=== PATIENT | female | born 1975 | race Caucasian/White ===

== ENCOUNTER → 2017-04-22 15:59 | Outpatient (CLI) | payer OTHER, SELFPAY ==
--- NOTE | 2017-04-22 16:08 | HPBI_ITS ---
MAMMOGRAPHY - BILATERAL SCREENING 3-D LUDMILA SYNTHESIS REASON FOR EXAM: Female, 41 years old. Bilateral Screening 3-D tomosynthesis PERTINENT HISTORY: Asymptomatic. Ultrasound guided biopsy 03/2016, benign fibroadenoma. Family breast carcinoma, maternal grandmother age 34. TECHNIQUE: 2-D mammograms and 3-D Ludmila synthesis of the breasts were performed. CAD was performed. COMPARISON: 03/24/2016 through 02/09/2012. FINDINGS: The breast composition is composed of scattered fibroglandular density. Scattered benign calcifications are seen. No dense spiculated masses, abnormal microcalcification cluster, dominant mass, architectural distortion or adenopathy is identified. There is no skin thickening or nipple retraction. Right breast lower inner quadrant tiny biopsy surgical clip noted. There has been no significant change since the prior study. HPBI/SCREENING MAMM (CAD), BILAT IMPRESSION: No mammographic signs of malignancy. Routine yearly mammograms recommended. ASSESSMENT CATEGORY: BIRADS Category 2: Benign. A letter regarding these results will be sent to the patient by the facility within 30 days. FOLLOW UP RECOMMENDATION: Yearly follow up mammogram recommended. (A) Approximately 10% of breast cancers are not detected by mammography. A normal mammogram should not delay biopsy of a clinically suspicious abnormality. Electronically Signed: Bird Bazan, at 18:04 EDT Tel , Service support ,
== END ==
PROVIDERS: Family Provider Family Medicine; PCP Family Medicine; Visit Provider Family Medicine
DX: Z12.31 Encounter for screening mammogram for malignant neoplasm of breast (principal)
CPT/HCPCS: 77063; 77067

== ENCOUNTER → 2018-04-25 10:19 | Outpatient (CLI) | payer OTHER, SELFPAY ==
--- NOTE | 2018-04-25 10:22 | BI_ITS ---
MAMMOGRAPHY - BILATERAL SCREENING 3-D LUDMILA SYNTHESIS REASON FOR EXAM: Female, 42 years old. Bilateral Screening 3-D tomosynthesis PERTINENT HISTORY: History of benign biopsy for fibroadenoma in 2017. Took infertility drugs for 7 years. TECHNIQUE: 2-D mammograms and 3-D Ludmila synthesis of the breast (s) were performed. CAD was performed. COMPARISON: April 22, 2017 FINDINGS: The breast composition is composed of scattered fibroglandular density. There is a stable biopsy clip in the right breast. Scattered benign calcifications are stable. There are normal-appearing lymph nodes unchanged. No dense spiculated masses or suspicious microcalcifications are identified. No architectural distortion is identified. There is no skin thickening or retraction. There has been no significant change since the prior study. BI/SCREENING MAMM (CAD), BILAT IMPRESSION: No mammographic signs of malignancy. Routine yearly mammograms recommended. ASSESSMENT CATEGORY: BIRADS Category 2: Benign. A letter regarding these results will be sent to the patient by the facility within 30 days. FOLLOW UP RECOMMENDATION: Yearly follow up mammogram recommended. (A) Approximately 10% of breast cancers are not detected by mammography. A normal mammogram should not delay biopsy of a clinically suspicious abnormality. Electronically Signed: Segun Dale MD at 17:50 EDT , Service support ,
== END ==
PROVIDERS: Family Provider Family Medicine; PCP Family Medicine; Referring Provider Family Medicine; Visit Provider Family Medicine
DX: Z12.31 Encounter for screening mammogram for malignant neoplasm of breast (principal)
CPT/HCPCS: 77063; 77067

== ENCOUNTER → 2018-05-17 14:21 | Outpatient (CLI) | payer OTHER, SELFPAY ==
--- NOTE | 2018-05-17 | ECC_PTH ---
PATIENT: CHAPARRITA PEOPLES LOC: [facility] U#:[id number] AGE/SX: 49/F ROOM: RE05/17/[address]: Dr. Sophia Tirado MD : 1975 BED: DIS: SPEC #: [id number] RECD: 05/17/18 13:30 STATUS: [place] MA[facility] #: [id number] TED: 05/17/18 00:[address]: Sophia Tirado DEPT: SURGICAL PATHOLOGY RECD BY: Franklyn Larkin ENTERED: 05/17/18 14:38 SP TYPE: SOHAM STEPHENS DR: Lia Thomas PA-C Tissues: Endocervical Procedures: Surgery Specimen Level IV HEADER OPERATION: Polypectomy PRE-OP DIAGNOSIS: N84.1, N92.4 TISSUE SUBMITTED: Endocervical MICROSCOPIC DIAGNOSIS Endocervical polyps, biopsy: Polypoid fragments of endocervical tissue, inflamed. AM:krishan 05/18/18 MICROSCOPIC DESCRIPTION Slides are reviewed. GROSS DESCRIPTION Received in fixative is one container labeled with the patient's name and designated polyps. The specimen consists of multiple irregular fragments of pink-red soft tissue that in aggregate measure 2 x 2 x 0.3 cm. The entire specimen is submitted in one cassette. / SJ:rg 05/17/18 TC:1 CPT: 66356
== END ==
PROVIDERS: Family Provider Family Medicine; PCP Family Medicine; Referring Provider Obstetrics & Gynecology; Visit Provider Obstetrics & Gynecology
DX: N84.1 Polyp of cervix uteri (principal); N92.4 Excessive bleeding in the premenopausal period
CPT/HCPCS: 88305

== ENCOUNTER → 2019-05-29 10:39 | Outpatient (CLI) | payer OTHER, SELFPAY ==
--- NOTE | 2019-05-29 10:42 | BI_ITS ---
MAMMOGRAPHY - BILATERAL SCREENING REASON FOR EXAM: Female, 43 years old. Routine annual screening examination. PERTINENT HISTORY: Grandmother with breast cancer. History of prior ultrasound-guided right breast biopsy which demonstrated to be a fibroadenoma. TECHNIQUE: Digital bilateral breast ludmila (3D mammographic acquisition) in the CC and MLO projections. 2-D mediolateral oblique (MLO) and craniocaudad (CC) views of both breasts were obtained. CAD: Full Field Digital Mammography with Computer Added Detection was performed. COMPARISON: Comparison is made with prior study dated April 25, 2018 and April 22, 2017. FINDINGS: Breast Composition: The breasts are heterogeneously dense, which may obscure small masses. A tissue clip marker is seen within a nodular density in the inferior central portion of the right breast. The nodular density is unchanged. Stable 1.1 cm well-defined nodule in the central medial portion of the left breast. Correlation with ultrasound is recommended. No clustered microcalcification is seen. No other significant abnormalities are identified. There has been no significant change since the prior study. BI/SCREEN MAMM (CAD) W/LUDMILA BILAT IMPRESSION: Stable bilateral screening mammogram. Ultrasound of the 1.1 cm nodule in the central medial portion of the left breast is recommended for further evaluation. ASSESSMENT CATEGORY: BIRADS Category 0: Incomplete. Need additional imaging evaluation. A letter regarding these results will be sent to the patient by the facility within 30 days. Approximately 10% of breast cancers are not detected by mammography. A normal mammogram should not delay biopsy of a clinically suspicious abnormality. [id number] Electronically Signed: Steve Harris, at 12:19 EDT , Service support ,
== END ==
PROVIDERS: PCP Family Medicine; Referring Provider Family Medicine; Visit Provider Family Medicine
DX: Z12.31 Encounter for screening mammogram for malignant neoplasm of breast (principal); N63.20 Unspecified lump in the left breast, unspecified quadrant; D24.1 Benign neoplasm of right breast
CPT/HCPCS: 77063; 77067

== ENCOUNTER → 2019-05-30 10:01 | Outpatient (CLI) | payer OTHER, SELFPAY ==
--- NOTE | 2019-05-30 10:02 | US_ITS ---
STUDY: ULTRASOUND BREAST - LEFT REASON FOR EXAM: Female, 43 years old. Abnormal screening mammogram. TECHNIQUE: Axial and longitudinal images of the LEFT breast were performed with a high resolution ultrasound transducer. # OF IMAGES: 55 COMPARISON: Comparison is made with prior mammogram dated May 29, 2019. FINDINGS: LEFT Breast: There is a 6 mm x 9 mm x 8 mm slightly irregular hypoechoic nodule with posterior acoustical shadowing at the 10:00 position of the breast at 7 cm from the nipple. A biopsy is recommended for further evaluation. There is also evidence of a 7 mm x 6 mm x 3 mm well-defined hypoechoic nodule at the 12:00 position of the breast at 6 cm from the nipple. US/Breast Limited Unilateral IMPRESSION: 6 mm x 9 mm x 8 mm slightly irregular hypoechoic nodule with posterior acoustical shadowing at the 10:00 position breast at 7 cm from nipple. A biopsy is recommended. ASSESSMENT CATEGORY: BIRADS Category 4: Suspicious - Biopsy Should Be Considered. A letter regarding these results will be sent to the patient by the facility within 30 days. Electronically Signed: Steve Harris, at 11:48 EDT , Service support ,
== END ==
PROVIDERS: PCP Family Medicine; Visit Provider Family Medicine
DX: N63.22 Unspecified lump in the left breast, upper inner quadrant (principal)
CPT/HCPCS: 76642

== ENCOUNTER → 2019-05-31 | Outpatient (CLI) | payer OTHER, SELFPAY ==
--- NOTE | 2019-05-31 | BRBX_PTH ---
PATIENT: CHAPARRITA PEOPLES [facility] U[facility][id number] AGE/SX: 43/F ROOM: RE05/31/[address]: Dr. Michele Moya MD : 1975 BED: DIS: 05/31/2019 SPEC #: [id number] RECD: 05/31/19 14:14 STATUS: [place] RE[place] #: [id number] TED: 05/31/19 00:[address]: Michele Moya DEPT: SURGICAL PATHOLOGY RECD BY: Shade Rodriguez ENTERED: 06/01/19 11:03 SP TYPE: BREAST BX OTHR DR: Lia Thomas PA-C Tissues: Left breast, NOS Procedures: Surgery Specimen Level IV HEADER OPERATION: Ultrasound-guided left breast biopsy PRE-OP DIAGNOSIS: Abnormal mammogram R92.8 TISSUE SUBMITTED: Left breast biopsy ISCHEMIC TIME: 30 seconds FIXATION TIME: 78 hours MICROSCOPIC DIAGNOSIS Left breast, ultrasound-guided needle core biopsy: Consistent with fibroadenoma. AM:krishan 06/04/19 COMMENT Reference is made to the patient's previous right breast ultrasound-guided needle core biopsy from 2017 ([id number]) in which changes of hyalinized fibroadenoma were identified. MICROSCOPIC DESCRIPTION Slides are reviewed. GROSS DESCRIPTION Received in fixative is one container labeled with the patient name and designated left breast biopsy. The specimen consists of two elongated fragments of murphy-yellow fibroadipose tissue that in aggregate measure 1 x 0.2 x 0.1 cm. The entire specimen is submitted in one cassette. / SJ:krishan 06/01/19 TC:5 CPT: [id number]
[2019-05-31 13:28] VITALS: BMI 24.9
== END | disposition home or self-care (01) ==
PROVIDERS: PCP Family Medicine; Referring Provider Surgery; Visit Provider Surgery
DX: R92.8 Other abnormal and inconclusive findings on diagnostic imaging of breast (principal)
CPT/HCPCS: 88305

== ENCOUNTER → 2019-11-06 | Outpatient (CLI) | payer OTHER, SELFPAY ==
[2019-11-06 15:03] VITALS: BMI 24.9
[2019-11-09 21:15] LABS: HPV APTIMA, High Risk Negative (Negative)
== END | disposition home or self-care (01) ==
LOC: LABSPEC 16:53
PROVIDERS: PCP Family Medicine; Referring Provider Nurse Practitioner Women's Health; Visit Provider Nurse Practitioner Women's Health
DX: Z12.4 Encounter for screening for malignant neoplasm of cervix (principal)
CPT/HCPCS: 87624; 88175; G0145

== ENCOUNTER → 2020-07-24 18:24 | Outpatient (CLI) | payer OTHER, SELFPAY ==
[2020-07-24 08:35] VITALS: BMI 24.9
--- NOTE | 2020-07-24 18:27 | US_ITS ---
ACR Level 3 findings have been noted. An addendum which confirms receipt of the report will follow. HISTORY: LLQ PAIN EXAMINATION: US Pelvis Non-OB Complete TECHNIQUE: Transvaginal pelvic ultrasound was performed. Grayscale, spectral waveform, and color flow Doppler evaluation of the adnexa. COMPARISON: None FINDINGS: UTERUS: anteverted. The uterus measures 7.4 x 6.1 x 3.5 cm. Focal hypoechoic myometrial lesion consistent with fibroid measures up to 1.6 cm. The endometrial stripe measures 10 mm in AP diameter which is within normal limits. Cervical nabothian cyst. RIGHT OVARY: 3.9 x 3.0 x 2.1 cm. Heterogenous lesion with thick and irregular internal septations measures up to 2.0 cm. There is normal arterial inflow and venous outflow present in the right ovary. LEFT OVARY: 2.5 x 2.0 x 1.8 cm. Non-enlarged, normal echogenicity. There is normal arterial inflow and venous outflow present in the left ovary. FREE FLUID: Trace. US/Pelvic (Non ) IMPRESSION: Fibroid uterus. 2.0 cm complex lesion right ovary. Recommend gynecological consultation for possible excision. at 1945 Reported and signed by: Mayank Figueroa MD Electronically Signed: Mayank Figueroa MD at 19:44 EDT Tel , Service support ,
--- NOTE | 2020-07-24 18:38 | US_ITS ---
ACR Level 3 findings have been noted. An addendum which confirms receipt of the report will follow. HISTORY: LLQ PAIN EXAMINATION: US Pelvis Non-OB Complete TECHNIQUE: Transvaginal pelvic ultrasound was performed. Grayscale, spectral waveform, and color flow Doppler evaluation of the adnexa. COMPARISON: None FINDINGS: UTERUS: anteverted. The uterus measures 7.4 x 6.1 x 3.5 cm. Focal hypoechoic myometrial lesion consistent with fibroid measures up to 1.6 cm. The endometrial stripe measures 10 mm in AP diameter which is within normal limits. Cervical nabothian cyst. RIGHT OVARY: 3.9 x 3.0 x 2.1 cm. Heterogenous lesion with thick and irregular internal septations measures up to 2.0 cm. There is normal arterial inflow and venous outflow present in the right ovary. LEFT OVARY: 2.5 x 2.0 x 1.8 cm. Non-enlarged, normal echogenicity. There is normal arterial inflow and venous outflow present in the left ovary. FREE FLUID: Trace. US/Transvaginal Non- IMPRESSION: Fibroid uterus. 2.0 cm complex lesion right ovary. Recommend gynecological consultation for possible excision. at 1945 Reported and signed by: Mayank Figueroa MD Electronically Signed: Mayank Figueroa MD at 19:44 EDT Tel , Service support ,
== END ==
PROVIDERS: PCP Family Medicine; Visit Provider Nurse Practitioner Women's Health
DX: R10.32 Left lower quadrant pain (principal)
CPT/HCPCS: 76830; 76856; 93976

== ENCOUNTER → 2020-09-04 11:27 | Outpatient (CLI) | payer OTHER, SELFPAY ==
[2020-07-24 08:35] VITALS: BMI 24.9
--- NOTE | 2020-09-04 11:29 | US_ITS ---
STUDY: ULTRASOUND OF THE FEMALE PELVIS - COMPLETE REASON FOR EXAM: Female, 45 years old. pelvic pain LMP: 08/29/2020 TECHNIQUE: Transabdominal and Transvaginal TECHNICAL QUALITY: Adequate. COMPARISON: 07/24/2020 FINDINGS: The uterus is anteverted and is in a midline position. The uterus measures 7.4 x 3.1 x 5.2 cm. Normal uterine cervix. The endometrium measures 6 mm in thickness, and is hyperechoic. There is no demonstrated endometrial mass. 1.5 cm oval hypoechoic mass within the right side of the body the uterus anteriorly consistent with an intramural fibroid. I.U.D. - The patient does not have an I.U.D. The right ovary is visualized. The right ovary measures 2.4 x 2.6 x 2.3 cm. There is no right ovarian cyst or ovarian mass. There is no visualized right adnexal mass or complex lesion. There is normal arterial and normal venous vascularity. The left ovary is visualized. The left ovary measures 2.5 x 2.2 x 2.3 cm. There is no left ovarian cyst or ovarian mass. There is no visualized left adnexal mass or complex lesion. There is normal arterial and normal venous vascularity. There is no fluid in the cul-de-sac. The pre void volume of the bladder was ml. The post void volume of the bladder was ml. Polycystic ovary disease: No. US/Pelvic (Non ) IMPRESSION: 1.5 cm fibroid in the right side of the uterus. Electronically Signed: Urbano Castanon MD at 8:33 EDT Tel , Service support ,
--- NOTE | 2020-09-04 11:29 | US_ITS ---
STUDY: ULTRASOUND OF THE FEMALE PELVIS - COMPLETE REASON FOR EXAM: Female, 45 years old. pelvic pain LMP: 08/29/2020 TECHNIQUE: Transabdominal and Transvaginal TECHNICAL QUALITY: Adequate. COMPARISON: 07/24/2020 FINDINGS: The uterus is anteverted and is in a midline position. The uterus measures 7.4 x 3.1 x 5.2 cm. Normal uterine cervix. The endometrium measures 6 mm in thickness, and is hyperechoic. There is no demonstrated endometrial mass. 1.5 cm oval hypoechoic mass within the right side of the body the uterus anteriorly consistent with an intramural fibroid. I.U.D. - The patient does not have an I.U.D. The right ovary is visualized. The right ovary measures 2.4 x 2.6 x 2.3 cm. There is no right ovarian cyst or ovarian mass. There is no visualized right adnexal mass or complex lesion. There is normal arterial and normal venous vascularity. The left ovary is visualized. The left ovary measures 2.5 x 2.2 x 2.3 cm. There is no left ovarian cyst or ovarian mass. There is no visualized left adnexal mass or complex lesion. There is normal arterial and normal venous vascularity. There is no fluid in the cul-de-sac. The pre void volume of the bladder was ml. The post void volume of the bladder was ml. Polycystic ovary disease: No. US/Transvaginal Non- IMPRESSION: 1.5 cm fibroid in the right side of the uterus. Electronically Signed: Urbano Castanon MD at 8:33 EDT Tel , Service support ,
== END ==
PROVIDERS: PCP Family Medicine; Referring Provider Obstetrics & Gynecology; Visit Provider Obstetrics & Gynecology
DX: D25.9 Leiomyoma of uterus, unspecified (principal)
CPT/HCPCS: 76830; 76856; 93976

== ENCOUNTER → 2020-12-11 09:41 | Outpatient (CLI) | payer OTHER, SELFPAY | PROVIDERS: PCP Physician Assistant; Referring Provider Obstetrics & Gynecology; Visit Provider Obstetrics & Gynecology | DX: R69 Illness, unspecified (principal) ==

== ENCOUNTER → 2020-12-19 | Outpatient (CLI) | payer OTHER, SELFPAY ==
--- NOTE | 2020-12-18 | FLU_PTH ---
PATIENT: CHAPARRITA PEOPLES LOC: [facility] U#:[id number] AGE/SX: 45/F ROOM: RE12/19/[address]: Dr. Michele Moya MD : 1975 BED: DIS: 12/19/2020 SPEC #: [id number] RECD: 12/19/20 12:06 STATUS: [place] [facility] #: [id number] TED: 12/18/20 00:[address]: Michele Moya DEPT: CYTOLOGY RECD BY: Nicole Menjivar ENTERED: 12/19/20 13:34 SP TYPE: Fluid OTHR DR: PATI Quintero Tissues: A - Thyroid gland, NOS B - Thyroid gland, NOS Procedures: Special Stain Group II Surgery Specimen Level IV Cytospin Fluid Cytology Other HEADER OPERATION: Ultrasound-guided fine needle aspiration left thyroid nodule PRE-OP DIAGNOSIS: Left thyroid nodule TISSUE SUBMITTED: A ? Left thyroid nodule fluid, B ? Left thyroid nodule x12 slides DIAGNOSIS CYTOLOGY A. Fine needle aspiration, left thyroid nodule (cytospin and cell block): Adequate for evaluation. Negative, consistent with benign follicular nodule. B. Fine needle aspiration, left thyroid nodule (smears): Adequate for evaluation. Suspicious for follicular neoplasm. AM:krishan 12/22/2020 COMMENT Case has been reviewed in consultation with Dr. Wu who concurs with the above diagnosis. IDC:SJ CYTOLOGY STUDY Slides are reviewed. CYTOLOGY GROSS A - Received is 15 ml of brown cloudy fluid labeled with the patient's name and and designated per the requisition as left thyroid nodule. Submitted for cytology preparation including cell block. B - Received are 12 smears labeled with the patient's name and designated per the requisition as left thyroid nodule. Submitted for staining. / krishan 12/19/2020 TC:? CPT: 41386, 24142, 71600
== END | disposition home or self-care (01) ==
LOC: LABSPEC 12:30
PROVIDERS: PCP Physician Assistant; Visit Provider Surgery
DX: E04.1 Nontoxic single thyroid nodule (principal)
CPT/HCPCS: 88108; 88161; 88305; 88313

== ENCOUNTER → 2021-01-22 09:36 | Outpatient (CLI) | payer OTHER, SELFPAY ==
--- NOTE | 2021-01-22 09:38 | US_ITS ---
STUDY: ULTRASOUND BREAST - LEFT REASON FOR EXAM: Female, 45 years old. Left breast lump. Recent bilateral breast reduction surgery. TECHNIQUE: Axial and longitudinal images of the LEFT breast were performed with a high resolution ultrasound transducer. # OF IMAGES: 26 COMPARISON: Comparison is made with prior mammogram done earlier today. FINDINGS: LEFT Breast: The area of the palpable lump was examined by ultrasound. There is dense fibroglandular tissue. No sonographic abnormality is seen. US/Breast Limited Unilateral IMPRESSION: No sonographic abnormality is seen. ASSESSMENT CATEGORY: BIRADS Category 1: Negative. A letter regarding these results will be sent to the patient by the facility within 30 days. Electronically Signed: Steve Harris MD at 11:03 EST , Service support ,
--- NOTE | 2021-01-22 09:38 | BI_ITS ---
MAMMOGRAPHY - BILATERAL DIAGNOSTIC REASON FOR EXAM: Female, 45 years old. Left breast lump following bilateral breast reduction surgery. PERTINENT HISTORY: Non-contributory. TECHNIQUE: Digital bilateral breast aldo (3D mammographic acquisition) in the CC and MLO projections. 2-D mediolateral oblique (MLO) and craniocaudad (CC) views of both breasts were obtained. CAD: Full Field Digital Mammography with Computer Added Detection was performed. COMPARISON: Comparison is made with prior study dated 05/29/2019 and 04/25/2018. FINDINGS: Breast Composition: The breasts are heterogeneously dense, which may obscure small masses. There are no dominant masses or suspicious calcifications. Since prior study, the patient is status post bilateral breast reduction. Once again, a tissue clip marker is seen within the 1.1 cm well-defined nodule in the central deep aspect of the right breast. This was demonstrated to be a fibroadenoma. The previously seen 1 cm nodule in the central portion of the left breast has been resected. No other significant abnormalities are identified. IMP RESSION: Status post bilateral breast reduction surgery. Stable nodular density in the deep slightly inferior central portion of the right breast. With the patient''s history of a left breast lump, correlation with ultrasound is recommended. ASSESSMENT CATEGORY: BIRADS Category 0: Incomplete. Need additional imaging evaluation. A letter regarding these results will be sent to the patient by the facility within 30 days. Approximately 10% of breast cancers are not detected by mammography. A normal mammogram should not delay biopsy of a clinically suspicious abnormality. Electronically Signed: Steve Harris MD at 11:19 EST , Service support , BI/DIAG MAMM W/NETTE ADKINS
== END ==
PROVIDERS: PCP Physician Assistant; Referring Provider Obstetrics & Gynecology; Visit Provider Obstetrics & Gynecology
DX: N63.20 Unspecified lump in the left breast, unspecified quadrant (principal)
CPT/HCPCS: 76642; 77062; 77066; G0279

== ENCOUNTER → 2021-11-12 | Outpatient (CLI) | payer OTHER, SELFPAY ==
[2021-11-12 14:09] LABS: Cholesterol 176 mg/dL (200); High Density Lipoprotein 56 mg/dL; Triglycerides 144 mg/dL; Very Low Density Lipoprotein 29 mg/dL (5-40)
== END | disposition home or self-care (01) ==
LOC: PAVLAB 12:53
PROVIDERS: PCP Physician Assistant; Referring Provider Obstetrics & Gynecology; Visit Provider Obstetrics & Gynecology
DX: Z13.220 Encounter for screening for lipoid disorders (principal)
CPT/HCPCS: 36415; 80061

== ENCOUNTER → 2022-01-25 | Outpatient (CLI) | payer OTHER, SELFPAY ==
--- NOTE | 2022-01-25 12:00 | BI_ITS ---
MAMMOGRAPHY - BILATERAL SCREENING REASON FOR EXAM: Female, 46 years old. Routine annual screening examination. PERTINENT HISTORY: Grandmother with breast cancer. Prior bilateral breast reduction surgery. TECHNIQUE: Digital bilateral breast ludmila (3D mammographic acquisition) in the CC and MLO projections. 2-D mediolateral oblique (MLO) and craniocaudad (CC) views of both breasts were obtained. CAD: Full Field Digital Mammography with Computer Added Detection was performed. COMPARISON: Comparison is made with prior examination dated 01/22/2021 and 05/29/2019. FINDINGS: Breast Composition: The breasts are heterogeneously dense, which may obscure small masses. There are no dominant masses or suspicious calcifications. Additional marker is seen within a 1.1 cm well-defined nodule in the central deep aspect of the right breast. This was determined to be a fibroadenoma. No other significant abnormalities are identified. There has been no significant change since the prior study. BI/SCRN MAMM (CAD)W/LUDMILA BILAT IMPRESSION: Stable bilateral screening mammogram. Yearly follow-up mammogram recommended. (A) ASSESSMENT CATEGORY: BIRADS Category 2: Benign. A letter regarding these results will be sent to the patient by the facility within 30 days. Approximately 10% of breast cancers are not detected by mammography. A normal mammogram should not delay biopsy of a clinically suspicious abnormality. [id number] Electronically Signed: Steve Harris MD at 15:42 EST ,
== END | disposition home or self-care (01) ==
LOC: OPBI 11:59
PROVIDERS: PCP Physician Assistant; Referring Provider Obstetrics & Gynecology; Visit Provider Obstetrics & Gynecology
DX: Z12.31 Encounter for screening mammogram for malignant neoplasm of breast (principal); Z80.3 Family history of malignant neoplasm of breast; D24.9 Benign neoplasm of unspecified breast
CPT/HCPCS: 77063; 77067

== ENCOUNTER → 2023-01-26 | Outpatient (CLI) | payer OTHER, SELFPAY ==
--- NOTE | 2023-01-26 10:58 | BI_ITS ---
MAMMOGRAPHY - BILATERAL SCREENING REASON FOR EXAM: Female, 47 years old. Routine annual screening examination. PERTINENT HISTORY: Grandmother with breast cancer. History of prior bilateral breast reduction surgery and right ultrasound-guided breast biopsy. TECHNIQUE: Digital bilateral breast ludmila (3D mammographic acquisition) in the CC and MLO projections. 2-D mediolateral oblique (MLO) and craniocaudad (CC) views of both breasts were obtained. CAD: Full Field Digital Mammography with Computer Added Detection was performed. COMPARISON: Comparison is made with prior study January 25, 2022 and January 22, 2021. FINDINGS: Breast Composition: The breasts are heterogeneously dense, which may obscure small masses. There is 1.6 cm nodule in the inferior slightly lateral aspect of the right breast. A tissue clip marker is seen within it. Stable bilateral benign-appearing axillary lymph nodes. No other significant abnormalities are identified. There has been no significant change since the prior study. BI/SCRN MAMM (CAD)W/LUDMILA BILAT IMPRESSION: Stable bilateral screening mammogram. Yearly follow-up mammogram recommended. (A) ASSESSMENT CATEGORY: BIRADS Category 2: Benign. A letter regarding these results will be sent to the patient by the facility within 30 days. Approximately 10% of breast cancers are not detected by mammography. A normal mammogram should not delay biopsy of a clinically suspicious abnormality. [id number] Electronically Signed: Steve Harris MD at 14:00 EST ,
== END | disposition home or self-care (01) ==
LOC: OPBI 10:57
PROVIDERS: PCP Physician Assistant; Referring Provider Obstetrics & Gynecology; Visit Provider Obstetrics & Gynecology
DX: Z12.31 Encounter for screening mammogram for malignant neoplasm of breast (principal)
CPT/HCPCS: 77063; 77067

== ENCOUNTER → 2024-01-30 | Outpatient (CLI) | payer OTHER, SELFPAY ==
--- NOTE | 2024-01-30 10:54 | BI_ITS ---
MAMMOGRAPHY - BILATERAL SCREENING 3-D TOMOSYNTHESIS REASON FOR EXAM: Female, 48 years old. screen PERTINENT HISTORY: No significant family history. TECHNIQUE: 2-D mammograms and 3-D Tomosynthesis of the breast (s) were performed. CAD was performed. COMPARISON: 01/26/2023 FINDINGS: The breast composition is heterogeneously dense that can obscure small breast masses. Scattered benign calcifications are seen. No dense spiculated masses or suspicious microcalcifications are identified. No architectural distortion is identified. There is no skin thickening or retraction. There has been no significant change since the prior study. No change in the 2 cm oval circumscribed equal density mass in the lower outer quadrant of the right breast which has been biopsied with a biopsy clip. BI/SCRN MAMM (CAD)W/LUDMILA BILAT IMPRESSION: No mammographic signs of malignancy. Routine yearly mammograms recommended. ASSESSMENT CATEGORY: BIRADS Category 2: Benign. A letter regarding these results will be sent to the patient by the facility within 30 days. FOLLOW UP RECOMMENDATION: Yearly follow up mammogram recommended. (A) Approximately 10% of breast cancers are not detected by mammography. A normal mammogram should not delay biopsy of a clinically suspicious abnormality. Electronically Signed: Urbano Castanon MD at 17:51 EST ,
== END | disposition home or self-care (01) ==
PROVIDERS: PCP Physician Assistant; Referring Provider Nurse Practitioner Women's Health; Visit Provider Nurse Practitioner Women's Health
DX: Z12.31 Encounter for screening mammogram for malignant neoplasm of breast (principal)
CPT/HCPCS: 77063; 77067

== ENCOUNTER → 2024-09-24 | Outpatient (CLI) | payer OTHER, SELFPAY ==
[2024-09-28 12:08] LABS: HPV APTIMA, High Risk Negative (Negative)
== END | disposition home or self-care (01) ==
LOC: LABSPEC 13:15
PROVIDERS: PCP Physician Assistant; Visit Provider Nurse Practitioner Family
DX: Z12.4 Encounter for screening for malignant neoplasm of cervix (principal)
CPT/HCPCS: 87624; 88175; G0145

== ENCOUNTER → 2025-02-04 | Outpatient (CLI) | payer OTHER, SELFPAY ==
--- NOTE | 2025-02-04 11:00 | BI_ITS ---
EXAM: SCRN MAMM (CAD)W/LUDMILA BILAT DATE: 02/04/2025 CLINICAL HISTORY: F, Age 49 y/o , SCREENING TECHNIQUE: Procedure Code: [id number] Modality: MG Procedure: SCRN MAMM (CAD)W/LUDMILA BILAT COMPARISON: Prior exam(s) dated 01/30/2024, 01/26/2023, and 01/25/2022. FINDINGS: TISSUE DENSITY: The breasts are heterogeneously dense, which may obscure small masses. Bilateral Breast Mammographic Findings: Benign-appearing round microcalcifications and macrocalcifications are seen in the right breast. A stable 2 cm partially obscured isodense mass is seen in the lower outer quadrant of the right breast. A radiopaque clip is seen at this location. The biopsy was benign. Stable partially obscured isodense masses are seen in the superior outer aspect of the left breast and superior medial, far posterior aspect of the left breast. Benign round microcalcifications are seen in the left breast. No suspicious masses, suspicious cluster of microcalcifications, architectural distortion or secondary sign of malignancy is identified in either breast. BI/SCRN MAMM (CAD)W/LUDMILA BILAT IMPRESSION: Benign screening mammogram OVERALL FINAL ASSESSMENT BI-RADS 2: BENIGN RECOMMENDATION: Routine annual follow-up in 1 Year Additional Recommendation none A letter with findings and recommendations will be mailed to the patient. Reading Location: [facility]
== END | disposition home or self-care (01) ==
LOC: OPBI 10:56
PROVIDERS: PCP Physician Assistant; Referring Provider Nurse Practitioner Family; Visit Provider Nurse Practitioner Family
DX: Z12.31 Encounter for screening mammogram for malignant neoplasm of breast (principal)
CPT/HCPCS: 77063; 77067